=== PATIENT | male | born 1975 | race Caucasian/White ===

== ENCOUNTER 2018-05-29 10:41 | Emergency (ER) | payer MEDICAID ==
[~2018-05-29] VITALS: Ht 180.3 cm; Wt 81.0 kg
[2018-05-29] MEDS ORDERED: IBUPROFEN 800MG TABLET PO ONE (12:00)
[2018-05-29] MEDS ORDERED: GABAPENTIN 300MG CAPSULE PO ONE (12:00)
[2018-05-30 12:30] VITALS: BP 108/70
== END 2018-05-30 13:30 | disposition home or self-care (01) ==
LOC: ER 10:41
DX: S52.501A Unspecified fracture of the lower end of right radius, initial encounter for closed fracture (principal); F99 Mental disorder, not otherwise specified; Z59.0 Homelessness; Z89.512 Acquired absence of left leg below knee; W01.0XXA Fall on same level from slipping, tripping and stumbling without subsequent striking against object, initial encounter; Z91.81 History of falling; Y93.89 Activity, other specified; Y92.488 Other paved roadways as the place of occurrence of the external cause
CPT/HCPCS: 29125; 73110; 99283